=== PATIENT | female | born 2000 | race Caucasian/White ===

== ENCOUNTER 2023-10-26 14:47 | Emergency (ER) | payer BC, SELFPAY ==
[2023-10-26 15:10] VITALS: BP 127/60; PULSE 85; RESP 18; TEMP 36.7; O2SAT 97; BMI 30.4
--- NOTE | 2023-10-26 15:30 | ED_ITS ---
Discharge Plan Disposition Patient Disposition: Home, Self-Care Condition: Good Prescriptions Prescriptions: New ubfbtyqf-hvtstocea-BW 3.5-10,000-1 mg/mL-unit/mL-% solution 4 drp Ear-Left Q8H 7 Days Qty: 10 0RF amoxicillin 875 mg tablet 875 mg PO Q12H Qty: 20 0RF Referrals Follow up/Referrals: Provider,Referral, MD [Primary Care Provider] - See instructions Activity Restrictions/Add. Instructions Additional Instructions/Restrictions: Take tylenol or ibuprofen for pain or fever. Take the medications as directed. Use the ear drops as directed. Follow up with your regular doctor. GO TO THE ER FOR ANY WORSENING SYMPTOMS Clinical Impressions Clinical Impression: Left ear impacted cerumen, Left acute otitis media Instructions Patient Instructions: DI for Cerumen Impaction, Middle Ear Infection Discharge ED Provider: Bora Peres [facility] [place] HPI General Stated complaint: ear pain left Time Seen by Provider: 10/26/23 15:30 History of Present Illness Provider Complaint: She states that for the past 4 days she has had worsening left ear pain, left ear pressure, and decreased hearing in that ear. Related Data Previous Rx's Medication Instructions Recorded amoxicillin 875 mg tablet 875 mg PO Q12H #20 tabs 10/26/23 ktkzbbzn-cnfaokcfl-ghvusknrl 3.5 4 drp Ear-Left Q8H 7 days #10 mL 10/26/23 mg/mL-10,000 unit/mL-1 % ear solution Allergies Allergy/AdvReac Type Severity Reaction Status Date / Time No Known Allergies Allergy Verified 10/26/23 15:39 [facility] Disclaimer: The information contained in this section may have been updated after the patient was seen, as this information can be updated by other users. Social History Smoking Status: Never smoker alcohol intake: never current occupational status: employed Travel in the last 8 weeks: None ROS Obtained: Yes All systems reviewed & no additional complaints except as documented Constitutional Constitutional: Reports chills and Denies fever(s) Eyes Eyes: Denies eye discharge ENT Ears, Nose, Mouth, and Throat: Reports as per HPI, Denies dizziness, Reports otalgia and Reports sore throat Cardiovascular Cardiovascular: Denies chest pain Respiratory Respiratory: Denies shortness of breath, Denies chest congestion, Denies cough, Denies stridor and Denies wheezing Gastrointestinal Gastrointestingal: Denies nausea or vomiting Musculoskeletal Musculoskeletal: Reports system reviewed and no additional complaints, except as documented and Denies arthralgias Integumentary/Breasts Skin/Breast: Denies rash Neurologic Neurologic: Denies dizziness and Denies paresthesias Allergic/Immunologic Allergic/Immunologic: Denies wheezing Physical Exam General General appearance: alert and in no apparent distress Head Head exam: atraumatic, normocephalic and normal inspection Eye Eye exam: Present normal appearance, PERRL and EOMI ENT ENT exam: Present normal oropharynx, mucous membranes moist and normal external ear exam Expanded ENT Exam TM/Canal exam: Left TM: erythema, bulging and cerumen impaction Nose exam: Absent sinus tenderness Nasal speculum exam: Bilateral: normal Mouth exam: Present normal external inspection; Absent drooling Teeth exam: Present normal inspection Throat exam: Present tonsillar erythema Neck Neck exam: Present normal inspection, full ROM and trachea midline; Absent meningismus or lymphadenopathy Chest Chest inspection: Present normal inspection and symmetric chest wall rise; Absent tenderness Respiratory Respiratory exam: Present normal lung sounds bilaterally; Absent respiratory distress Cardiovascular Cardiovascular exam: Present regular rate and normal rhythm; Absent JVD Abdominal Exam Abdominal exam: Present soft and normal bowel sounds; Absent distention, tenderness or guarding Extremities Exam Extremities exam: Present normal inspection, full ROM and normal capillary refill; Absent calf tenderness Back Exam Back exam: Present normal inspection; Absent tenderness Neurological Exam Neurological exam: Present alert and oriented X3 Psychiatric Psychiatric exam: Present normal affect and normal mood Skin Skin exam: Present warm, dry, intact and normal color Lymphatic Lymphatic Findings: no adenopathy Medical Decision Making Medical Records Medical records reviewed: No I reviewed the patient's medical records. Osmin Inquiry Pt receiving controlled substance: No Procedures Risk/Benefits of Procedure(s) Were Explained: Yes Ear Wax Removal Right Ear: Results: Re-examined: cerumen removed completely TM Examination: TM(s) intact, normal appearance Ear Canal Exam: atraumatic Patient Tolerated Procedure: well and no complications Complications: no problems Technique: ear canal irrigated Additional Comments: Her left ear canal was gently irrigated. A large amount of impacted cerumen was removed. She tolerated this well. All cerumen was removed.
[2023-10-26 16:15] VITALS: BP 127/60; PULSE 85; RESP 18; TEMP 36.7; O2SAT 97
== END 2023-10-26 16:14 | disposition home or self-care (01) ==
PROVIDERS: Emergency Provider Nurse Practitioner Family
DX: H66.92 Otitis media, unspecified, left ear (principal); H92.02 Otalgia, left ear; H61.22 Impacted cerumen, left ear
CPT/HCPCS: 69209; 99204; 99213; G0463

== ENCOUNTER 2024-03-25 16:53 | Emergency (ER) | payer BC, SELFPAY ==
[2024-03-25 17:12] VITALS: BP 155/81; PULSE 86; RESP 20; TEMP 36.6; O2SAT 100; BMI 31.5
--- NOTE | 2024-03-25 17:14 | ED_ITS ---
Discharge Plan Disposition Patient Disposition: Home, Self-Care Condition: Good Prescriptions Prescriptions: New ibuprofen 600 mg tablet 600 mg PO Q6HP PRN (Reason: Moderate Pain) Qty: 20 0RF methocarbamol 500 mg tablet 500 mg PO TID PRN (Reason: muscle spasm) Qty: 15 0RF Referrals Follow up/Referrals: Ramon Fernández DO [Primary Care Provider] - See instructions Activity Restrictions/Add. Instructions Additional Instructions/Restrictions: *Ibuprofen sherry 6 hours with meal as needed for pain/inflammation *Not additional anti-inflammatory like motrin, aleve, advil with the above amount of ibuprofen. You can still take Tylenol every 4 hours as needed if you need something else for pain *Ice 20 minutes every 2 hours for the first 48 hours after the initial injury followed by moist heat every 20 minutes 3-4 times a day to affected area *Muscle relaxer every 8 hours as needed for muscle spasms but remember, it WILL cause drowsiness You cannot take it and drive, operate machinery or care for small children. *Keep this area active, no movement leads to more stiffness, However take it easy and avoid heavy lifting pushing or pulling *Follow up with you family doctor if no improvement for further treatment Clinical Impressions Clinical Impression: Muscle spasm Instructions Patient Instructions: DI for Muscle Spasm, Methocarbamol Print Language Print Language: [place] Discharge ED Provider: Naty Vargas [facility] General Stated complaint: Left shoulder injury 1 week ago Mode of Arrival: Ambulatory Source of Information: Patient Time Seen by Provider: 03/25/24 17:14 Description of Symptoms (Recalled from Triage Doc. by RN): LEFT SHOULDER PAIN HEENT Symptoms (Recalled from RN notes): No Resp Symptoms (Recalled from RN notes): No Skin Symptoms (Recalled from RN notes): No MS Symptoms (Recalled from RN notes): Yes Functional Status (Recalled from RN notes): WNL History of Present Illness Provider Complaint: Patient states that she has been having muscle spasm like pain in her left shoulder area from her neck to her shoulder pain worse with movement or raising arm States she was playing with her son about a week ago and laid back on one his toys and when she woke up the next morning she was having spasm like pain and stiffness Denies chest pain and denies radiation of pain Related Data Previous Rx's ?Medication ?Instructions ?Recorded ibuprofen 600 mg tablet 600 mg PO Q6HP PRN Moderate Pain 03/25/24 #20 tabs methocarbamol 500 mg tablet 500 mg PO TID PRN muscle spasm #15 03/25/24 tabs Allergies Allergy/AdvReac Type Severity Reaction Status Date / Time No Known Allergies Allergy Verified 10/26/23 15:39 Worker's Comp Is this a Worker's Comp case?: No [facility] Dis[facility]: The information contained in this section may have been updated after the patient was seen, as this information can be updated by other users. Social History (Updated 10/26/23 @ 16:12 by Bora Peres APRN) Smoking Status: Never smoker alcohol intake: never current occupational status: employed Travel in the last 8 weeks: None ROS Obtained: Yes All systems reviewed & no additional complaints except as documented and Yes Systems reviewed as appropriate & no additional complaints except as documented Constitutional Constitutional: Reports system reviewed and no additional complaints, except as documented and Reports as per HPI ENT Ears, Nose, Mouth, and Throat: Reports system reviewed and no additional complaints, except as documented and Reports as per HPI Cardiovascular Cardiovascular: Reports system reviewed and no additional complaints, except as documented, Reports as per HPI, Denies chest pain, Denies edema, Denies irregular heart rhythm, Denies leg edema and Denies lightheadedness Respiratory Respiratory: Reports system reviewed and no additional complaints, except as documented and Reports as per HPI Gastrointestinal Gastrointestingal: Reports system reviewed and no additional complaints, except as documented and as per HPI Musculoskeletal Musculoskeletal: Reports system reviewed and no additional complaints, except as documented, Reports as per HPI and Reports other Comments: Muscle spasm like pain in left shoulder and shoulder blade area Physical Exam General General appearance: alert and in no apparent distress ENT ENT exam: Present mucous membranes moist Respiratory Respiratory exam: Present normal lung sounds bilaterally; Absent respiratory distress or wheezes Cardiovascular Cardiovascular exam: Present regular rate, normal rhythm and normal heart sounds Abdominal Exam Abdominal exam: Present soft and normal bowel sounds; Absent distention or tenderness Expanded Upper Extremity Exam Left: Shoulder exam: Present tenderness and other (see back image) Arm exam: Present normal inspection Elbow exam: Present normal inspection Forearm/Wrist exam: Present normal inspection Hand exam: Present normal inspection Back Exam Back exam: Present tenderness and muscle spasm Back 1 view image: 2 1. reports tightness, muscle spasm like pain and tenderness with palpation Pain worse with palpation or raising of arm Denies known injury thinks she may have slept wrong Neurological Exam Neurological exam: Present alert, oriented X3 and normal gait Medical Decision Making Osmin Inquiry Pt receiving controlled substance: No Osmin was queried for this patient: No Vital Signs: 03/25/24 17:12 Temperature 97.8 F Temperature Source Oral Pulse Rate [Left Brachial] 86 Respiratory Rate 20 Blood Pressure [Left Arm] 155/81 H Blood Pressure Mean [Left Arm] 105 02 Sat by Pulse Oximetry 100 Medical Decision Narrative: Patient denies chance of
[2024-03-25 17:26] VITALS: BP 155/81; PULSE 86; RESP 20; TEMP 36.6
== END 2024-03-25 17:55 | disposition home or self-care (01) ==
PROVIDERS: Emergency Provider Nurse Practitioner; PCP Internal Medicine
DX: M25.512 Pain in left shoulder (principal); M62.838 Other muscle spasm; W22.8XXA Striking against or struck by other objects, initial encounter
CPT/HCPCS: 99212; 99214; G0463

== ENCOUNTER 2024-05-29 14:40 | Emergency (ER) | payer BC, SELFPAY ==
[2024-05-29 15:13] VITALS: BP 122/69; PULSE 76; RESP 20; TEMP 36.9; O2SAT 98; BMI 29.7
--- NOTE | 2024-05-29 15:31 | EXP.UTC ---
Discharge Plan Disposition Patient Disposition: Home, Self-Care Condition: Good Prescriptions Prescriptions: New azithromycin [Zithromax] 250 mg tablet 250 mg PO UD DOSE PK Qty: 6 0RF Rx Instructions: Take two (2) tablets today, then one (1) tablet days #2 thru #5 methylprednisolone 4 mg Tablets,Dose Pack 4 mg PO DIRECTED 6 Days Qty: 21 0RF Rx Instructions: Take 1 pack as directed for 6 days Saline Nasal Mist 3 % mist 2 spray intranasal QID 7 Days Qty: 126 5RF [id number]-[id number]-ZA [Bromfed DM] 2-30-10 mg/5 mL Syrup 5 ml PO Q6H PRN (Reason: Cough) Qty: 240 0RF Referrals Follow up/Referrals: Manny Chirinos MD [Physician] - See instructions Ramon Fernández DO [Primary Care Provider] - See instructions Activity Restrictions/Add. Instructions Additional Instructions/Restrictions: Drink plenty of fluids. Take tylenol or ibuprofen for pain or fever. Take the medications as directed. Follow up with your regular doctor. GO TO THE ER FOR ANY WORSENING SYMPTOMS Follow up with the ENT physician (Dr. Chirinos) if you continue to have the nose bleeds. Get a humidifier. I wrote a prescription, but your insurance will probably not pay for it. Clinical Impressions Clinical Impression: Sinusitis, Epistaxis Instructions Patient Instructions: Sinusitis, DI for Sinusitis Print Language Print Language: Irish Discharge ED Provider: Bora Peres [facility] [place] HPI General Stated complaint: frequent nose bleeds/ coughing up blood x 4 days Mode of Arrival: Ambulatory Source of Information: Patient Time Seen by Provider: 05/29/24 15:31 Description of Symptoms (Recalled from Triage Doc. by RN): NOSE BLEEDS X 3-4 DAYS, COUGHED UP BLOOD ONCE TODAY HEENT Symptoms (Recalled from RN notes): Yes Resp Symptoms (Recalled from RN notes): No Skin Symptoms (Recalled from RN notes): No MS Symptoms (Recalled from RN notes): No Functional Status (Recalled from RN notes): WNL Related Data Previous Rx's ?Medication ?Instructions ?Recorded azithromycin 250 mg tablet 250 mg PO UD DOSE PK #6 tabs 05/29/24 (Zithromax) tcporcfxkwwjlzy-iqdiqvgazppeerb-OB 5 ml PO Q6H PRN Cough #240 mL 05/29/24 2 mg-30 mg-10 mg/5 mL oral syrup (Bromfed DM) methylprednisolone 4 mg tablets in 4 mg PO DIRECTED 6 days #21 tabs 05/29/24 a dose pack sodium chloride 3 % nasal mist 2 spray intranasal QID 7 days #126 05/29/24 (Saline Nasal Mist) mL Allergies Allergy/AdvReac Type Severity Reaction Status Date / Time No Known Allergies Allergy Verified 10/26/23 15:39 Worker's Comp Is this a Worker's Comp case?: No PFSH [facility] Disclaimer: The information contained in this section may have been updated after the patient was seen, as this information can be updated by other users. Social History (Updated 10/26/23 @ 16:12 by Bora Peres APRN) Smoking Status: Never smoker alcohol intake: never current occupational status: employed Travel in the last 8 weeks: None ROS Obtained: Yes All systems reviewed & no additional complaints except as documented Constitutional Constitutional: Reports poor appetite Eyes Eyes: Reports system reviewed and no additional complaints, except as documented ENT Ears, Nose, Mouth, and Throat: Reports as per HPI Cardiovascular Cardiovascular: Reports system reviewed and no additional complaints, except as documented and Denies chest pain Respiratory Respiratory: Denies shortness of breath, Denies chest congestion, Reports cough, Denies stridor and Denies wheezing Gastrointestinal Gastrointestingal: Reports system reviewed and no additional complaints, except as documented; Denies abdominal pain, diarrhea or vomiting Musculoskeletal Musculoskeletal: Reports system reviewed and no additional complaints, except as documented and Denies arthralgias Integumentary/Breasts Skin/Breast: Reports system reviewed and no additional complaints, except as documented and Denies rash Neurologic Neurologic: Denies paresthesias Allergic/Immunologic Allergic/Immunologic: Denies wheezing Physical Exam General General appearance: alert and in no apparent distress Eye Eye exam: Present normal appearance, PERRL and EOMI ENT ENT exam: Present mucous membranes moist and normal external ear exam Expanded ENT Exam External ear exam: Present normal external inspection TM/Canal exam: Bilateral TM: erythema and bulging Nose exam: Absent sinus tenderness Nasal speculum exam: Bilateral: normal Mouth exam: Present normal external inspection; Absent drooling Teeth exam: Present normal inspection Throat exam: Present tonsillar erythema and tonsillomegaly Neck Neck exam: Present normal inspection, full ROM and trachea midline; Absent tenderness, lymphadenopathy or thyromegaly Chest Chest inspection: Present normal inspection and symmetric chest wall rise; Absent tenderness or rash Respiratory Respiratory exam: Present normal lung sounds bilaterally; Absent respiratory distress, wheezes, stridor or accessory muscle use Cardiovascular Cardiovascular exam: Present regular rate, normal rhythm and normal heart sounds Abdominal Exam Abdominal exam: Present soft; Absent distention, tenderness, guarding, rebound or rigidity Extremities Exam Extremities exam: Present normal inspection, full ROM and normal capillary refill; Absent tenderness or calf tenderness Back Exam Back exam: Present normal inspection and full ROM; Absent tenderness Neurological Exam Neurological exam: Present alert and oriented X3 Psychiatric Psychiatric exam: Present normal affect and normal mood Skin Skin exam: Present warm, dry, intact and normal color Lymphatic Lymphatic Findings: no adenopathy Medical Decision Making Medical Records Medical records reviewed: No I reviewed the patient's medical records. Screening: Per USPSTF and CDC recommendations, given the prevalence of disease in our region, it is our hospital?s policy to screen for HIV and viral Hepatitis for all patients aged 18 and over and those with ongoing risk factors. Osmin Inquiry Pt receiving controlled substance: No Vital Signs: 05/29/24 15:13 Temperature 98.5 F Temperature Source Oral Pulse Rate [Left Radial] 76 Respiratory Rate 20 Blood Pressure [Left Arm] 122/69 Blood Pressure Mean [Left Arm] 86 02 Sat by Pulse Oximetry 98
[2024-05-29 16:10] VITALS: BP 122/69; PULSE 76; RESP 20; TEMP 36.9
== END 2024-05-29 16:11 | disposition home or self-care (01) ==
PROVIDERS: Emergency Provider Nurse Practitioner Family; PCP Internal Medicine
DX: J01.90 Acute sinusitis, unspecified (principal); R04.0 Epistaxis
CPT/HCPCS: 99213; G0381

== ENCOUNTER 2025-04-11 14:00 | Outpatient (RCR) | payer BC, SELFPAY | END 2025-04-11 23:59 | disposition home or self-care (01) | LOC: PT 14:00 | PROVIDERS: Visit Provider Nurse Practitioner Family | DX: M67.51 Plica syndrome, right knee (principal) | CPT/HCPCS: 97110; 97161 ==

== ENCOUNTER 2025-05-02 13:00 | Outpatient (RCR) | payer BC, SELFPAY | END 2025-05-02 23:59 | disposition home or self-care (01) | LOC: PT 13:00 | PROVIDERS: Visit Provider Nurse Practitioner Family | DX: M67.51 Plica syndrome, right knee (principal) | CPT/HCPCS: 97035; 97110 ==